=== PATIENT | male | born 1955 | race Caucasian/White ===

== ENCOUNTER 2022-11-24 02:42 | Emergency (ER) | payer MEDICARE, BC ==
[~2022-11-24] VITALS: Ht 175.3 cm; Wt 66.7 kg
[~2022-11-24 02:42] MED LIST: FISH OIL 1,0001 EAC1 PO; PERCOCET 7.5-31 EACH PO
[2022-11-24] MEDS ORDERED: ATORVASTATIN CA10 MG PO (02:52)
[2022-11-24] MEDS ORDERED: LISINOPRIL10 MG PO (02:52)
--- NOTE | 2022-11-26 12:20 | EKG ---
[facility] [place] [facility] [address] [place] [address] Signed Sinus bradycardia with 1st degree AV block Otherwise normal ECG No previous ECGs available Confirmed by Mayco Collier MD () on 11/26/2022 12:20:12 PM Electronically Signed By: MAYCO COLLIER MD 11/26/22 1220 PATIENT NAME: NANCYFALLON Elmer Electrocardiogram DATE OF : 51 PHYSICIAN: MAYCO COLLIER MD REPORT #: [id number] REPORT IS CONFIDENTIAL AND NOT TO BE RELEASED WITHOUT AUTHORIZATION
== END 2022-11-24 04:55 | disposition home or self-care (01) ==
LOC: ED 02:42
DX: R55 Syncope and collapse (principal); Z23 Encounter for immunization; Z79.899 Other long term (current) drug therapy
CPT/HCPCS: 36415; 70450; 70486; 72125; 80053; 81003; 83735; 85025; 85610; 90471; 90715; 93005; 93010; 99284-25; J7121

== ENCOUNTER 2023-02-27 11:10 | Day surgery (SDC) | payer MEDICARE, BC ==
[~2023-02-27] VITALS: Ht 175.3 cm; Wt 69.0 kg
[~2023-02-27 11:10] MED LIST changes: +ASPIRIN81 MG PO; +ATORVASTATIN CA10 MG PO; +FISH OIL 1,0001 EAC6 PO; +LISINOPRIL10 MG PO; +OSTERA TABLET1 EACH PO; +ZINC30 MG PO
[2023-02-27 11:29] VITALS: BP 152/80
[2023-02-27] MEDS ORDERED: OCUVITE ADULT1 EAC3 PO (11:33)
[2023-02-27 16:41] VITALS: BP 129/75
--- NOTE | 2023-02-28 10:48 | OR ---
[facility] [address], [place] [address] Signed DATE OF OPERATION: 02/27/2023 SURGEON: Kg Downs MD PREOPERATIVE DIAGNOSES: 1. Family history of colon cancer (father). 2. History of tubular adenoma in 2017. POSTOPERATIVE DIAGNOSIS: Three small polyps (rectum, sigmoid and cecum). PROCEDURE: Total colonoscopy to cecum with cold morcellation polypectomy x3. ANESTHESIA: Intravenous sedation, fentanyl 150 mcg and Versed 5 mg. INDICATION: This 67-year-old white man recent patient of Dr. Vogt has undergone colonoscopy by me in 2017, at which time, he had a tubular adenoma of the right colon. He has no current symptoms of bleeding, diarrhea, or constipation. His father had colon cancer at age 80. The patient is here for a colonoscopy. He understands the risk of bleeding, infection, and perforation. FINDINGS: The prep was excellent. Complete colonoscopy was undertaken to the cecum without question. He had three small polyps, one in the rectum, one in the sigmoid and the other in the cecum. All were excised with cold morcellation technique. DESCRIPTION OF PROCEDURE: The patient was brought to the endoscopy suite and placed in lateral decubitus position, given intravenous sedation upon slurred speech and nystagmus. Digital rectal examination was normal. An Olympus video colonoscope was passed in the rectum and manipulated throughout the colon ultimately intubating the cecum itself. The ileocecal valve and appendiceal orifice were normal. Scope was withdrawn and immediately noted within the cecum was a small adenomatous polyp. This was excised with cold morcellation technique. Further withdrawal showed no abnormality until the sigmoid where another similar such polyp was noted. This too was excised. Further withdrawal showed a very small rectal polyp Electronically Signed By: KG DOWNS MD 02/28/23 1048 PATIENT NAME: FALLON CRUZ OPERATIVE REPORT DATE OF : 51 REPORT #: [id number] PHYSICIAN: KG DOWNS MD PCP: NO PRIMARY CARE PHYSICIAN REPORT IS CONFIDENTIAL AND NOT TO BE RELEASED WITHOUT AUTHORIZATION [facility] [address], [place] [address] Signed similarly excised with cold morcellation technique. Retroflexed view was otherwise normal. Scope was removed and the patient was taken to the recovery room in good condition. CONCLUDING DIAGNOSIS: Small polyps x3. PLAN: Recommend repeat colonoscopy in 5 years, sooner if clinically indicated. He will return to the ongoing care of Dr. Vogt or a new physician of his choice. MD JESSICA Friedman/MODL /[id number] cc: Yin Vogt MD Copies: YIN VOGT MD ~ Electronically Signed By: KG DOWNS MD 02/28/23 1048 PATIENT NAME: FALLON CRUZ OPERATIVE REPORT DATE OF : 51 REPORT #: [id number] PHYSICIAN: KG DOWNS MD PCP: NO PRIMARY CARE PHYSICIAN REPORT IS CONFIDENTIAL AND NOT TO BE RELEASED WITHOUT AUTHORIZATION
--- NOTE | 2023-03-02 11:15 | PATH ---
[facility] [address] [facility] [place] [address] Signed SPECIMEN(S): A CECUM POLYP SPECIMEN(S): B TRANSVERSE COLON POLYP SPECIMEN(S): C SIGMOID POLYP SPECIMEN SOURCE: A. CECUM POLYP B. TRANSVERSE COLON POLYP C. SIGMOID POLYP CLINICAL HISTORY: History of polyps. FINAL PATHOLOGIC DIAGNOSIS: A. Cecum polyp: - Tubular adenoma (one fragment). B. Transverse colon polyp: - Tubular adenoma (one fragment). C. Sigmoid polyp: - Hyperplastic polyp (one fragment). JVR:[facility]:C2NR MICROSCOPIC EXAMINATION: Histologic sections of all submitted blocks are examined by light microscopy. These findings, together with the gross examination, support the pathologic diagnosis. GROSS DESCRIPTION: A. The specimen, labeled and designated "Sudeep, 1," and designated on the requisition "cecum polypectomy," is received in formalin and consists of four witt soft tissue fragments, ranging from 0.1-0.8 cm. Entirely submitted in (A1). B. The specimen, labeled and designated "Sudeep, 2," and designated on the requisition "transverse colon polypectomy," is received in formalin and consists of two witt soft tissue fragments, ranging from 0.2-0.3 cm. Entirely submitted in (B1). C. The specimen, labeled and designated "Sudeep, 3," and designated on the requisition "sigmoid polypectomy," is received in formalin and consists of one witt soft tissue fragment, 0.2 cm. Entirely submitted in (C1). AC (under the direct supervision of a pathologist) The Gross Description was prepared using a voice recognition system. The report PATIENT NAME: FALLON CRUZ PATHOLOGY DATE OF : 51 REPORT #: [id number] PHYSICIAN: PAWEL SMYTH PCP: NO PRIMARY CARE PHYSICIAN REPORT IS CONFIDENTIAL AND NOT TO BE RELEASED WITHOUT AUTHORIZATION [facility] [address] [place], [place] [address] Signed was reviewed for accuracy; however, sound-alike word errors, addition and/or deletions may occur. If there is any question about this report, please contact Client Services. PERFORMING LABORATORY: The technical component was performed by [employer], [address] [place] [id number] (CLIA# [id number]). Professional interpretation was performed by [facility], [address] [place] [id number] (CLIA#: [id number]). Diagnostician: Ermias Silva MD Pathologist Electronically Signed 03/02/2023 Copies: ~ PATIENT NAME: FALLON CRUZ PATHOLOGY DATE OF : 51 REPORT #: [id number] PHYSICIAN: PAWEL PATHOLOGY PCP: NO PRIMARY CARE PHYSICIAN REPORT IS CONFIDENTIAL AND NOT TO BE RELEASED WITHOUT AUTHORIZATION
== END 2023-02-27 16:50 | disposition home or self-care (01) ==
LOC: OPS 11:10 → DS 15:00 → OPS 16:50
PROVIDERS: ATTEND Surgery
DX: Z12.11 Encounter for screening for malignant neoplasm of colon (principal); D12.0 Benign neoplasm of cecum; D12.3 Benign neoplasm of transverse colon; K62.5 Hemorrhage of anus and rectum; Z86.010 Personal history of colon polyps; Z80.0 Family history of malignant neoplasm of digestive organs; R55 Syncope and collapse; I10 Essential (primary) hypertension; Z79.82 Long term (current) use of aspirin; Z79.899 Other long term (current) drug therapy
CPT/HCPCS: 99153; G0500; J2250; J3010

== ENCOUNTER 2023-11-18 15:49 | Emergency (ER) | payer OTHER, MEDICARE, BC ==
[~2023-11-18] VITALS: Ht 175.3 cm; Wt 68.9 kg
[~2023-11-18 15:49] MED LIST changes: +OCUVITE ADULT1 EAC3 PO
[2023-11-18 16:32] LABS: BASOPHILS 0.5 % (0-2); EOSINOPHILS 1.1 % (0-6); HEMATOCRIT 41.3 % (35.0-50.0); LYMPHOCYTES 39.9 % (24-44); MCV 94.3 fl (81-99); MONOCYTES 9.5 % (0-12); PLATELET COUNT 154 K/uL (140-440); RBC 4.38 M/ul (4.3-5.7); RDW 13.4 (10.5-15.0)
[2023-11-18 16:48] LABS: ALBUMIN 3.4 g/dL (3.4-5.0); ALBUMIN/GLOBULIN RATIO 0.76 (1.1-2.4); ALCOHOL, MEDICAL <3 ng/dL (<3); ALKALINE PHOSPHATASE 80 U/L (46-116); ALT (SGPT) 24 U/L (14-59); ANION GAP 14.8 (7-21); AST (SGOT) 26 U/L (15-37); BILIRUBIN, TOTAL 0.4 ng/dL (0.2-1.0); BUN/CREATININE RATIO 16.66 (6.0-28.6); CALCIUM 8.9 mg/dL (8.5-10.1); CARBON DIOXIDE 26 mmol/L (21-32); CHLORIDE 103 mmol/L (98-107); GLOMERULAR FILTRATION RATE,EST 92 mL/min (>60); POTASSIUM 3.8 mmol/L (3.5-5.1); PROTEIN, TOTAL 7.9 g/dL (6.4-8.2); UREA NITROGEN 15 mg/dL (7-18)
[2023-11-18 18:08] LABS: BARBITURATES, URINE NEGATIVE (NEGATIVE); BENZODIAZEPINE, URINE NEGATIVE (NEGATIVE); BUPRENORPHINE, URINE NEGATIVE (NEGATIVE); CANNABINOID, URINE NEGATIVE (NEGATIVE); COCAINE, URINE NEGATIVE (NEGATIVE); FENTANYL, URINE NEGATIVE (NEGATIVE); METHADONE, URINE NEGATIVE (NEGATIVE); OPIATES, URINE NEGATIVE (NEGATIVE); OXYCODONE, URINE NEGATIVE (NEGATIVE); PHENCYCLIDINE, URINE NEGATIVE (NEGATIVE)
[2023-11-18 18:35] VITALS: BP 139/89
[2023-11-18 18:35] LABS: AMPHETAMINES, URINE NEGATIVE (NEGATIVE)
[2023-11-18 19:08] LABS: ECSTASY, URINE NEGATIVE (NEGATIVE)
== END 2023-11-18 18:35 | disposition home or self-care (01) ==
LOC: ED 15:49
PROVIDERS: Emergency Medicine
DX: S80.212A Abrasion, left knee, initial encounter (principal); S80.211A Abrasion, right knee, initial encounter; S90.31XA Contusion of right foot, initial encounter; V28.49XA Other motorcycle driver injured in noncollision transport accident in traffic accident, initial encounter; Z79.899 Other long term (current) drug therapy; Z79.82 Long term (current) use of aspirin
CPT/HCPCS: 36415; 73560; 73630; 80053; 80307; 85025; G0480